=== PATIENT | male | born 1995 | race Hispanic/Latino ===

== ENCOUNTER → 2025-06-06 | Outpatient (CLI) | payer OTHER ==
--- NOTE | 2025-06-06 17:40 | HMCSR ---
APPROVED REPORT EXAM: Two-dimensional and M-mode echocardiogram with Doppler and color Doppler. INDICATION ICD: Palpitations R00.2 2D Dimensions RVDd3.4 cmLVEF(%)45.2 (>50%)LVED Vol(simp.)105.5 mL IVSd0.8 (0.7-1.1cm)FS(%)22 %LVES Vol(simp.)50.2 mL LVDd4.6 (3.8-5.6cm)LA (2D)3.5 (1.6-4.0cm)LVEF(%, simp.)52 % PWd1.0 (0.7-1.1cm)Ao Root(2D)1.7 (2.0-3.7cm)LA ESV INDEX (BP)17.92 mL/m2 LVDs3.6 (2.5-4.0cm)LVOT diam2.1 (1.8-2.4cm) IVC diam1.1 cm M-Mode Dimensions EPSS1.3 cm LA (MM)3.7 (1.6-4.0cm) Ao Root(MM)2.7 (2.0-3.7cm) Aortic Valve AoV Vmax1.2 m/[place] GR5.9 mmHgLVOT Vmax0.9 m/s AoV VTI0.2 mAo Mean GR3.4 mmHgLVOT VTI0.17 m LATRELL (VMAX)2.67 cm2AVA (VTI) 2.9 cm2 Mitral Valve MV E Vmax59.0 cm/sDECEL Grjk963 ms MV A Vmax49.7 cm/sP 1/2 T67 ms E/A ratio1.2MVA (PHT)3.3 cm2 TDI E/E' Medial5.9E/E' Lateral3.7 Medial E' Peak V10.02 cm/sLateral E' Peak V16.02 cm/s Pulmonary Valve PV Vmax1.0 m/sPV VTI0.22 mPV Mean GR2.4 mmHg PV Peak GR3.8 mmHg Left Ventricle The left ventricle is normal size. No regional wall motion abnormalities noted. There is normal left ventricular wall thickness. LVEF is 50-55%. The left ventricular diastolic function is normal. Right Ventricle The right ventricle is normal size. The right ventricular systolic function is normal. Atria The left atrium size is normal. The right atrium size is normal. Aortic Valve The aortic valve is normal in structure. No aortic regurgitation is present. There is no aortic valvu lar stenosis. Mitral Valve The mitral valve is normal in structure. There is no mitral valve regurgitation noted. There is no mi tral valve stenosis. Tricuspid Valve The tricuspid valve is normal in structure. There is no tricuspid valve regurgitation noted. Pulmonic Valve The pulmonary valve is normal in structure. There is no pulmonic valvular regurgitation. Great Vessels The aortic root is normal in size. The IVC is normal in size and collapses >50% with inspiration. Pericardium There is no pericardial effusion. Conclusion LVEF is 50-55%. No regional wall motion abnormalities noted. The aortic root is normal in size. There is no pericardial effusion.
--- NOTE | 2025-06-10 19:57 | EKG ---
[facility] Test Date: 2025-06-06 Test Time: 14:02:08 Pat Name: ADI ROJAS Department: [facility] Room: Gender: M Mediator: [id number] : 1995 Requested By: GUNNER ESPINO Order Number: [id number] Reading MD: Measurements Intervals [place] Rate: 73 P: 62 VT: 157 QRS: 63 QRSD: 93 T: 17 QT: 363 QTc: 402 Interpretive Statements Sinus rhythm No previous ECG available for comparison Please click the below link to view image of tracing.
== END | disposition home or self-care (01) ==
LOC: RAH 13:33
PROVIDERS: ATTEND Chiropractor
DX: R00.2 Palpitations (principal); D45 Polycythemia vera
CPT/HCPCS: 93005; 93306

== ENCOUNTER → 2025-06-19 | Outpatient (CLI) | payer OTHER ==
--- NOTE | 2025-06-19 12:33 | HMCIMG ---
DOUBLE CONTRAST UPPER GI SERIES: Findings: The study was performed using provocative maneuvers After swallowing effervescent crystal and thick barium, there is no definite intrinsic or extrinsic lesion seen in the esophagus. The stomach is normal in size, shape, and configuration. The rugal folds appear to be normal. The duodenal bulb, duodenal sweep, and upper jejunum appear to be normal. Fluoroscopy time: 0.4 minutes seconds. IMPRESSION: NORMAL DOUBLE CONTRAST UPPER GI SERIES.
== END | disposition home or self-care (01) ==
LOC: RAH 09:30
PROVIDERS: ATTEND Emergency Medicine
DX: K21.00 Gastro-esophageal reflux disease with esophagitis, without bleeding (principal)
CPT/HCPCS: 74240